=== PATIENT | male | born 1995 | race Caucasian/White ===

== ENCOUNTER 2021-06-13 21:35 | Emergency (ER) | payer OTHER ==
[~2021-06-13] VITALS: Ht 180.3 cm; Wt 90.7 kg
[2021-06-13 21:40] VITALS: BP 135/79
--- NOTE | 2021-06-13 23:09 | NUR ---
Assisted pt to call her son, Alexandru. Pt able to speak with her son on the phone.
[2021-06-13 23:19] VITALS: BP 135/79
--- NOTE | 2021-06-13 23:19 | NUR ---
Patient discharged with v/s stable. Written and verbal after care instructions given and explained. Patient verbalized understanding. Ambulatory with steady gait. All questions addressed prior to discharge. Advised to follow up with PMD.
== END 2021-06-13 23:15 | disposition home or self-care (01) ==
LOC: MED 21:35
DX: B27.90 Infectious mononucleosis, unspecified without complication (principal); J02.9 Acute pharyngitis, unspecified
CPT/HCPCS: 99281